=== PATIENT | female | born 1995 | race African-American/Black ===

== ENCOUNTER 2023-01-15 14:28 | Outpatient (CLI) | payer BC | END 2023-01-15 14:29 | disposition home or self-care (01) | LOC: SCSRAD 14:28 | PROVIDERS: ATTEND Nurse Practitioner Family | DX: S99.921A Unspecified injury of right foot, initial encounter (principal); S92.414A Nondisplaced fracture of proximal phalanx of right great toe, initial encounter for closed fracture ==